=== PATIENT | female | born 1995 | race Two or more races ===

== ENCOUNTER 2023-08-29 20:26 | Emergency (ER) | payer OTHER, SELFPAY ==
--- NOTE | ~2023-08-29 | CT_ITS ---
CTA OF left lower extremity EXAMINATION: CTA [facility] DATE: 08/29/2023 23:00 INDICATION: Intractable leg with significant swelling TECHNIQUE: Computed tomography angiography (CTA) of the left lower extremity was performed with 150 m L Omnipaque 350 intravenous contrast in the arterial phase. Automated exposure control and iterative reconstruction technique were employed. The dose-length product was 2062.69 mGy-cm. COMPARISON: None FINDINGS: Fibroid uterus. Normal bilateral ovaries. Mostly empty urinary bladder which limits evaluation. Audra l appendix. No significant arterial stenosis. No arterial occlusion. The trifurcation is patent. Ther e is 2 vessel flow below the level of the ankle. Subcutaneous stranding and an irregular 2 x 6 cm josé luis p subcutaneous blood density fluid collection involving the anteromedial lower leg. The regional bone s are normal. IMPRESSION: No acute arterial pathology detected. No acute osseous finding. Subcutaneous edema and hematoma noted in the anteromedial left lower leg. Reviewed, dictated and finalized at location K.
[2023-08-29 20:30] VITALS: BP 149/115; PULSE 93; RESP 18; TEMP 36.6; O2SAT 100
--- NOTE | 2023-08-29 21:20 | ECG_ITS ---
SEE SCANNED COPY FOR CONFIRMED REPORT MTDD
[2023-08-29] MEDS: IBUPROFEN 400 MG TABLET 800 MG PO (21:29)
[2023-08-29] MEDS: ACETAMINOPHEN 500 MG TABLET 1000 MG PO (21:29)
[2023-08-29 21:41] LABS: Basophils Absolute Auto 0.1 K/mm3 (0.0-0.1); Basophils Percent Auto 0.6 % (0.2-1.2); Eosinophils Absolute Auto 0.2 K/mm3 (0-0.3); Eosinophils Percent Auto 1.4 % (0-4.4); Hematocrit 35.5 % (37.0-47.0); Hemoglobin 10.2 g/dL (12.0-15.0); Immature Granulocyte Absolute 0.03 K/mm3 (0.00-0.031); Immature Granulocyte Percent A 0.3 % (0-0.5); Lymphocytes Absolute Auto 2.21 K/mm3 (0.9-3.2); Lymphocytes Percent Auto 18.8 % (18.3-44.2); Mean Corpuscular HGB Conc 28.7 g/dl (32-36); Mean Corpuscular Hemoglobin 19.5 pg (26-34); Mean Platelet Volume 9.4 fl (7.4-10.4); Monocytes Absolute Auto 0.8 K/mm3 (0.1-0.6); Monocytes Percent Auto 6.4 % (2.6-8.5); Neutrophils Absolute Auto 8.6 K/mm3 (1.3-6.7); Neutrophils Percent Auto 72.5 % (45.5-73.1); Platelet Count Result 440 k/mm3 (150-375); Red Blood Count 5.22 M/mm3 (4.2-5.4); Red Cell Distribution Width 17.8 % (11.5-14.5); White Blood Count 11.8 K/mm3 (4.5-10.0)
[2023-08-29 21:51] LABS: Alanine Aminotransferase 26 U/L (6-35); Albumin Level 4.4 g/dL (3.5-5.1); Alkaline Phosphatase 79 U/L (38-126); Anion Gap 8 mmol/L (4-12); Aspartate Amino Transferase 28 U/L (14-36); Bilirubin,Total 0.5 mg/dL (0.2-1.3); Blood Urea Nitrogen 8 mg/dL (7-17); Calcium 9.4 mg/dL (8.4-10.2); Carbon Dioxide 26 mmol/L (22-30); Chloride 106 mmol/L (98-107); Estimated Glomerular Filt Rate > 60; Glucose 80 mg/dL (65-110); Potassium 3.9 mmol/L (3.4-5.0); Sodium 140 mmol/L (137-145)
[2023-08-29 21:55] LABS: Hypochromasia 1+; Microcytosis 1+ (NORMAL); Ovalocytes 1+; Platelet Estimate Increased (Adequate)
[2023-08-29 21:56] LABS: Schistocytes None Seen
--- NOTE | 2023-08-29 23:15 | PC.NURSE ---
This RN took over patient care after receiving report from ALONSO Manning.
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
== END 2023-08-30 00:30 | disposition home or self-care (01) ==
PROVIDERS: Emergency Provider Emergency Medicine
DX: S80.12XA Contusion of left lower leg, initial encounter (principal); R55 Syncope and collapse; E66.9 Obesity, unspecified; W16.012A Fall into swimming pool striking water surface causing other injury, initial encounter; Y93.83 Activity, rough housing and horseplay
CPT/HCPCS: 36415; 73706; 80053; 81025; 85025; 93005; 99284; A9270; Q9967